=== PATIENT | female | born 1960 | race Caucasian/White ===

== ENCOUNTER → 2018-01-01 | Outpatient (CLI) | payer OTHER ==
[~2018-01-01] MED LIST: IOPAMIDOL 370 MG/ML 200 ML INFUS..BTL INJ ONE; SODIUM CHLORIDE 0.9% 50ML 50 ML ONE
--- NOTE | 2018-01-01 13:34 | Diagnostic Imaging Report ---
EXAM: CT Abdomen and Pelvis WITH contrast INDICATION: \[id number] \S\1245 \S\LOCAL INFECTION OF THE SKIN COMPARISON: None. TECHNIQUE: Abdomen and pelvis were scanned utilizing a multidetector helical scanner from the lung base to the pubic symphysis after administration of IV contrast. Coronal and sagittal reformations were obtained. Routine protocol was performed. Scan was performed when during portal venous phase. IV CONTRAST: 100 mL of Isovue-370 ORAL CONTRAST: Water COMPLICATIONS: None RADIATION DOSE: Total DLP: 493.43 mGy*cm Estimated effective dose: (DLP x 0.015 x size factor) mSv CTDIvol has been reviewed. It is below the limits set by the Radiation Protocol Committee (RPC). FINDINGS: LINES and TUBES: None. LOWER THORAX: Unremarkable HEPATOBILIARY: No focal hepatic lesions. No biliary ductal dilation. GALLBLADDER: No radio-opaque stones or sludge. No wall thickening. SPLEEN: No splenomegaly. PANCREAS: No focal masses or ductal dilatation. ADRENALS: No adrenal nodules KIDNEYS/URETERS: Kidneys enhance symmetrically. No hydronephrosis. No renal mass. 1.8 cm left midpole cyst. No stones. GI TRACT: No abnormal distention, wall thickening, or evidence of bowel obstruction. Appendix is normal. PELVIC ORGANS/BLADDER: Hysterectomy. Bladder is unremarkable. Pelvic phleboliths. LYMPH NODES: No lymphadenopathy. VESSELS: Unremarkable. PERITONEUM / RETROPERITONEUM: No free air or fluid. BONES: Unremarkable. SOFT TISSUES: Bilateral posterior lower back/buttock subcutaneous densities and areas fat necrosis (series 2, images 64, 91, and 99). Right buttock 1.2 x 2.3 cm density (series 2, image 73), contains a gas bubble and shows mild peripheral enhancement. Partially imaged bilateral breast implants. IMPRESSION: 1. Subcutaneous bilateral lower back/buttock densities and areas of fat necrosis, related to recent injections. A more loculated appearing area in the right buttock, containing a gas bubble, could represent a small abscess. Signed by: Dr. Louis Dunbar MD on 01/01/2018 1:30 PM
== END ==
LOC: CT 11:35
PROVIDERS: ATTEND Internal Medicine Infectious Disease
DX: L08.9 Local infection of the skin and subcutaneous tissue, unspecified (principal)
CPT/HCPCS: 74177; Q9967

== ENCOUNTER → 2018-01-15 | Outpatient (CLI) | payer OTHER ==
--- NOTE | 2018-01-15 11:25 | Diagnostic Imaging Report ---
PROCEDURE: A single AP view of the chest. COMPARISON: None. INDICATIONS: PICC LINE PLACEMENT FINDINGS: Lines/tubes: Right-sided PICC has been placed. Tip overlies the region of the SVC. Lungs: The lungs are well inflated and clear. There is no evidence of pneumonia or pulmonary edema. Pleura: There is no pleural effusion or pneumothorax. Heart and mediastinum: The heart and the mediastinum are unremarkable. Prominent density in the right cardiophrenic angle represents mediastinal fat. Bones: No acute bony abnormality. IMPRESSION: 1. No acute cardiopulmonary disease. 2. Right-sided PICC in appropriate location. Joshua oLwe D.O. Dictated by: Joshua Lowe D.O. on 01/15/2018 at 11:30 Electronically approved by: Joshua Lowe D.O. on 01/15/2018 at 11:30
== END ==
LOC: DX 10:16
PROVIDERS: ATTEND Internal Medicine Infectious Disease
DX: L03.317 Cellulitis of buttock (principal)
CPT/HCPCS: 36569; 71045